=== PATIENT | female | born 1995 | race Caucasian/White ===

== ENCOUNTER 2017-07-23 09:50 | Emergency (ER) | payer SELFPAY ==
[2017-07-23 09:55] VITALS: BP 122/70; BMI 23.6
--- NOTE | 2017-07-23 10:12 | DR.GENAD ---
HPI - PCP Primary Care Physician: DR. CHACON - HPI Comment HPI Comment: GETTING WORSE. HOME MEDS NOT HELPING. - Complaint/Symptoms Chief Complaint Doctors Comments: COUGH, COLD, CONGESTION, BODYACHES AND FEVER FOR 3 DAYS. Chief Complaint:: PATIENT STATED THAT SHE HAS FLU LIKE SYMPTOMS SINCE SATURDAY. SHE STATED THAT HER THROAT IS HURTING AND SHE HAS BEEN COUGHING. - Nurses notes reviewed Nurses Notes Review: Yes - Source History Provided: Patient - Mode of Arrival Mode of Arrival: Ambulatory - Timing Onset of Chief Complaint: 07/20/17 Came on: Suddenly - Duration Duration: Constant Duration: Days - Severity Severity: Moderate PMH - PMH Past Medical History: Yes Past Medical History: Hypothyroidism Past Surgical History: Yes Surgical History: - Family History History of Family Medical Conditions: No - Social History Does patient currently use any type of tobacco product: No Have you used tobacco products in the last 12 months: No Type of Tobacco Use: None Does any household member use tobacco: No Alcohol Use: None Do you use any recreational Drugs:: No Lives With: Family Lives Where: Home - infectious screening In the last 2 months have you had wt loss of >10#?: NO Have you had fever, night sweats or hemotysis?: No Have you traveled outside the country in the last 6 months?: No Isolation: Standard ROS - Review of Systems Constitutional: Chills, Fever, Weakness, Fatigue Eyes: negative: Eye Pain, Discharge ENTM: Nose Discharge, Nose Congestion, Throat Pain. negative: Ear Pain Respiratoy: Productive Cough. negative: Short of Breath, Wheezing, Hemoptysis Cardiovascular: No Symptoms Reported Gastrointestinal/Abdominal: No Symptoms Reported Genitourinary: No Symptoms Reported Neurological: Headache, Weakness Musculoskeletal: Muscle Pain Integumentary: No Symptoms Reported Hematologic/Lymphatic: No Symptoms Reported Endocrine: No Symptoms Reported All Other Systems: Reviewed and Negative PE - Vital Signs Vitals: Temperature 98.4 F Pulse Rate 109 Respiratory Rate 20 Blood Pressure 122/70 O2 Sat by Pulse Oximetry 98 - General Limitations: No Limitations General Appearance: Alert - Head Head Exam: Normal Inspection - Eyes Eye exam: Normal Appearance - ENT ENT Exam: Normal External Ear Exam. negative: Normal Oropharynx (THROAT INFLAME.), TM's Normal Bilaterally (TM BULGING) External Ear Exam: Normal External Inspection TM/Canal Exam: Bilateral Bulging Nose Exam: Normal Nose Exam Mouth Exam: Normal Inspection Throat Exam: Tonsillar Erythema, Tonsillomegaly. negative: Tonsillar Exudate - Neck Neck Exam: Trachea Midline - Chest Chest Inspection: Symmetric Chest Wall Rise - Respiratory Respiratory Exam: Normal Lung Sounds Bilat Respiratory Exam: Bilateral Rhonchi, Lower Rhonchi - Cardiovascular Cardiovascular Exam: Regular Rate, Normal Rhythm, Normal Heart Sounds - Abdominal Exam Abdominal Exam: Normal Inspection - Extremities Extremities Exam: Normal Inspection - Back Back Exam: Normal Inspection - Neurologic Neurological Exam: Alert, Oriented X3 - Psychiatric Psychiatric Exam: Normal Affect, Normal Mood - Skin Skin Exam: Normal Color MDM - Differential Diagnosis Differential Diagnosis: INFLUENZA, TONSILLITIS, SINUSITIS, BRONCHITIS, PNEUMONIA Course - Treatment Treatment: SEE ORDERS - Education/Counseling Education/Counseling: Patient, Education Educated On: Treatment, Diagnosis, Needs for Follow Up ROR - Labs Reviewed Laboratory Results Reviewed?: Yes Laboratory: Influenza Type A (PCR) Positive (NEGATIVE) A 07/23/17 10:31 Influenza Type B (PCR) Negative (NEGATIVE) 07/23/17 10:31 Streptococcus Screen Negative (NEGATIVE) 07/23/17 10:31 - Diagnosis Discharge Problem: Influenza, Sinusitis, Bronchitis - Discharge Plan Condition: Stable Prescriptions: Amoxicillin [AMOXIL CAP 500 MG *] 500 mg PO TID #30 cap Cetirizine HCl [Zyrtec Tab 10 mg] 10 mg PO DAILY #30 tab Promethazine W/Codeine [PHENERGAN W/CODEINE 6.25mg/10mg (5mL) *] 5 ml PO Q6H PRN #120 ml PRN Reason: Cough - Follow ups/Referrals Follow ups/Referrals: PAUL CHACON [Primary Care Provider] - 3 days - Instructions Instructions: Influenza, Adult, [id number], Sinusitis, Adult, [id number], Acute Bronchitis, [id number] Additional Instructions: RETURN TO ED IF WORSE.
[2017-07-23] MEDS ORDERED: TORADOL TAB PO ONE ×2 (10:21→10:29)
[2017-07-23] MEDS ORDERED: ZyrTEC TAB 10 MG PO ONE (10:24)
[2017-07-23] MEDS ORDERED: TESSALON PERLES PO ONE (10:25)
[2017-07-23] MEDS ORDERED: ZyrTEC TAB 10 MG ONE (10:30)
== END 2017-07-23 12:00 | disposition home or self-care (01) ==
LOC: ER 10:01
DX: J11.1 Influenza due to unidentified influenza virus with other respiratory manifestations (principal); J32.9 Chronic sinusitis, unspecified; J40 Bronchitis, not specified as acute or chronic
CPT/HCPCS: 87070; 87502; 87880; 99282